=== PATIENT | male | born 1990 | race Two or more races ===

== ENCOUNTER 2018-07-21 11:30 | Emergency (ER) | payer SELFPAY ==
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
[2018-07-21] MEDS ORDERED: Azithromycin 250 MG Tab PO ONE (11:55)
[2018-07-21] MEDS ORDERED: cefTRIAXone 250 MG in Lidocaine 1% 0.9 ML IM ONE (11:55)
[2018-07-21 12:36] VITALS: BP 138/83
== END 2018-07-21 12:31 | disposition home or self-care (01) ==
LOC: MW.ED 11:30
DX: Z20.2 Contact with and (suspected) exposure to infections with a predominantly sexual mode of transmission (principal)
CPT/HCPCS: 87491; 87591; 96372; 99283; A9270; J0696

== ENCOUNTER 2018-11-01 15:01 | Emergency (ER) | payer SELFPAY ==
[2018-11-01] MEDS ORDERED: Sodium Chloride 0.9% 1,000 ML IV ONE (15:02)
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
[2018-11-01 15:19] VITALS: BP 142/70
[2018-11-01 16:31] LABS: CHLORIDE,CL 105 mmol/L (98-107); SODIUM,NA 140 mmol/L (136-148)
--- NOTE | 2018-11-01 16:36 | CT ---
INDICATION: Dizziness. TECHNIQUE: Noncontrast head CT scan. FINDINGS: Axial noncontrast images through the brain parenchyma demonstrates no acute intracranial hemorrhage or mass. No midline shift. No abnormal extra-axial air or fluid collections. Paranasal sinuses mastoid air cells skull and scalp appear unremarkable. IMPRESSION: 1. No acute intracranial hemorrhage or mass. Please note that all CT scans at this facility use dose modulation, iterative reconstruction, and/or weight-based dosing when appropriate to reduce radiation dose to as low as reasonably achievable. Dictated by Sammie Payne MD @ Nov 01 2018 4:32PM Signed by Dr. Sammie Payne @ Nov 01 2018 4:36PM
== END 2018-11-01 17:22 | disposition home or self-care (01) ==
LOC: MW.ED 15:01
DX: H66.001 Acute suppurative otitis media without spontaneous rupture of ear drum, right ear (principal); R42 Dizziness and giddiness
CPT/HCPCS: 36415; 70450; 80053; 85025; 93005; 96360; 96361; 99284; J7040; 99283

== ENCOUNTER 2018-12-06 12:20 | Emergency (ER) | payer SELFPAY ==
[2018-12-06 12:47] VITALS: BP 131/73
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
== END 2018-12-06 13:08 | disposition home or self-care (01) ==
LOC: MW.ED 12:20
DX: G56.02 Carpal tunnel syndrome, left upper limb (principal)
CPT/HCPCS: 99283

== ENCOUNTER 2019-03-05 05:35 | Emergency (ER) | payer SELFPAY ==
[2019-03-05] MEDS ORDERED: Diphtheria,Pertussis(Acell),Tetanus Vaccine 0.5 ML Syringe IM ONE (05:40)
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
--- NOTE | 2019-03-05 06:15 | CR ---
INDICATION: Pain. Swelling. TECHNIQUE: Three views left ankle. FINDINGS: Moderate soft tissue swelling involving the left ankle most prominent laterally and anteriorly. Mild increased density in the subcutaneous tissues of the visualized left lower extremity suggesting subcutaneous edema. No acute fracture or dislocation in left ankle. Small benign area of sclerosis involving the distal left tibia. Remainder negative. Dictated by Deniz Lam MD @ Mar 05 2019 6:11AM Signed by Dr. Deniz Lam @ Mar 05 2019 6:13AM
[2019-03-05 06:34] VITALS: BP 148/80
== END 2019-03-05 06:34 | disposition home or self-care (01) ==
LOC: MW.ED 05:35
DX: S00.81XA Abrasion of other part of head, initial encounter (principal); S90.512A Abrasion, left ankle, initial encounter; L03.116 Cellulitis of left lower limb; Z23 Encounter for immunization; X50.1XXA Overexertion from prolonged static or awkward postures, initial encounter
CPT/HCPCS: 73610-26-LT; 73610-LT; 90471; 90715; 99283; 99283-25

== ENCOUNTER 2019-03-11 03:25 | Emergency (ER) | payer SELFPAY ==
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
[2019-03-11 03:47] VITALS: BP 139/82
== END 2019-03-11 03:52 ==
LOC: MW.ED 03:25
DX: F15.10 Other stimulant abuse, uncomplicated (principal); Z87.891 Personal history of nicotine dependence
CPT/HCPCS: 99283

== ENCOUNTER 2019-12-09 18:41 | Emergency (ER) | payer SELFPAY ==
[2019-12-09] MEDS ORDERED: Sodium Chloride 0.9% 1,000 ML IV ONE ×2 (18:45→18:52)
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
[2019-12-09 19:15] LABS: BLOOD UREA NITROGEN,BUN 13 mg/dL (7.0-18.0); CARBON DIOXIDE,CO2 28.7 mmol/L (21.0-32.0); CHLORIDE,CL 102 mmol/L (98-107); GLUCOSE RANDOM 122 mg/dL (74-106); POTASSIUM,K 3.3 mmol/L (3.5-5.1); SODIUM,NA 141 mmol/L (136-148)
--- NOTE | 2019-12-09 19:17 | CT ---
CT cervical spine Technique: Multiple axial sections through the cervical spine were obtained. Study was obtained from above C1 inferiorly to the lower T3 level. Reconstructed sagittal and coronal images were reviewed. Findings: Vertebral body heights and disc spaces are maintained. Vertebral bodies and posterior arches are intact. No fracture is appreciated. No abnormal subluxation is appreciated. No bony central or bony neural foraminal stenosis is seen. No traumatic disc herniation is appreciated. Visualized lung apices are clear. Impression: 1. Nothing acute is appreciated on CT study of the cervical spine. Diagnostic code #1 This report was dictated in MDT
[2019-12-09 19:21] VITALS: BP 158/90; PULSE 105
--- NOTE | 2019-12-09 19:26 | CT ---
Head CT Technique: Multiple axial sections through the brain were obtained. Intravenous contrast was utilized. Comparison: Previous head CT study of 11/01/18 is available. Findings: Ventricles along with basal cisterns and sulci over the convexities are within normal limits for the patient's age. No abnormal parenchymal densities are seen. No evidence of intracranial hemorrhage. No midline shift or mass-effect is seen. Bone window settings were reviewed. No acute calvarial finding is seen. Visualized paranasal sinuses and mastoid sinuses show nothing acute. Impression: 1. Nothing acute is seen on noncontrast head CT exam. Diagnostic code #1 This report was dictated in MDT
[2019-12-09] MEDS ORDERED: Iopamidol 755 Mg/ML 100 ML Bottle IVPUSH STA (20:23)
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
--- NOTE | 2019-12-09 21:10 | CT ---
CT lumbar spine Technique: Multiple axial sections through the lumbar spine were obtained. Reconstructed coronal and sagittal images were obtained. Comparison: No previous lumbar spine imaging is available. Findings: Vertebral body heights and disc spaces are maintained. No fracture is identified. No bony central canal stenosis is seen. No bony neural foraminal stenosis is noted. No traumatic disc herniation is seen. Impression: 1. Nothing acute is appreciated on CT study of the lumbar spine. Diagnostic code #1 This report was dictated in MDT
--- NOTE | 2019-12-09 21:14 | CT ---
CT abdomen and pelvis Technique: Multiple axial sections were obtained from above the dome of the diaphragm inferiorly through the pubic symphysis. Intravenous contrast was utilized. No oral contrast has been given. Findings: No discrete liver abnormality is seen. Spleen appears without discrete abnormality. Kidneys show symmetric contrast enhancement appear without abnormality. Adrenal glands show no nodule. Pancreas shows no abnormality. Gallbladder contains no calcified gallstones. Aorta shows no aneurysm. No retroperitoneal adenopathy or mesenteric abnormalities are seen. No pelvic mass or adenopathy is seen. No free fluid or inflammatory change is seen. Appendix not visualized with certainty. Bone window settings were reviewed. No acute osseous finding is seen. Impression: 1. Nothing acute is seen on contrast study of the abdomen and pelvis. Diagnostic code #1 This report was dictated in MDT
== END 2019-12-09 21:35 | disposition home or self-care (01) ==
LOC: MW.ED 18:41
DX: S09.90XA Unspecified injury of head, initial encounter (principal); M54.6 Pain in thoracic spine; V09.9XXA Pedestrian injured in unspecified transport accident, initial encounter
CPT/HCPCS: 36415; 36569; 70450; 70450-26; 71260; 71260-26; 72125; 72125-26; 72128; 72128-26; 72131; 72131-26; 74177; 74177-26; 80053; 81003; 85025; 85610; 99284-25; 99285; J7030; Q9967

== ENCOUNTER 2019-12-28 10:55 | Emergency (ER) | payer SELFPAY ==
[2019-12-28] MEDS ORDERED: OLANZapine 10 MG in Water For Injection, Sterile 2.1 ML IM ONE (11:06)
[2019-12-28] MEDS ORDERED: Sodium Chloride 0.9% 2.5 ML Syringe FLUSH PRN ×2 (11:07→11:16)
[2019-12-28] MEDS ORDERED: Sodium Chloride 0.9% 10 ML Syringe FLUSH PRN ×2 (11:07→11:16)
[2019-12-28] MEDS ORDERED: OLANZapine 10 MG Vial ONE (11:07)
[2019-12-28] MEDS ORDERED: Sodium Chloride 0.9% 1,000 ML IV ONE ×2 (11:07→12:12)
[2019-12-28] MEDS ORDERED: Sodium Chloride 0.9% 10 ML SDV IV PRN (11:16)
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
[2019-12-28] MEDS ORDERED: Haloperidol Lactate 5 MG/ML SDV IM ONE ×2 (11:24→11:45)
[2019-12-28] MEDS ORDERED: Haloperidol Lactate 5 MG/ML SDV ONE ×2 (11:25→11:35)
[2019-12-28] MEDS ORDERED: LORazepam 2 MG/ML SDV IVPUSH ONE ×2 (11:30→12:10)
[2019-12-28] MEDS ORDERED: LORazepam 2 MG/ML SDV ONE ×2 (11:41→11:55)
[2019-12-28 11:49] LABS: BLOOD UREA NITROGEN,BUN 22 mg/dL (7.0-18.0); CARBON DIOXIDE,CO2 22.4 mmol/L (21.0-32.0); CHLORIDE,CL 100 mmol/L (98-107); GLUCOSE RANDOM 166 mg/dL (74-106); POTASSIUM,K 3.5 mmol/L (3.5-5.1); SODIUM,NA 137 mmol/L (136-148)
[2019-12-28 11:51] LABS: LIPASE 76 U/L (73-393)
--- NOTE | 2019-12-28 11:51 | CR ---
Left ankle: 3 views of the left ankle were obtained. Comparison: Previous ankle study is not available. Ankle mortise is symmetric. No fracture, dislocation or other bony abnormality is appreciated. Impression: 1. No abnormality is appreciated on left ankle exam. Diagnostic code #1 This report was dictated in MDT
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
--- NOTE | 2019-12-28 11:54 | CR ---
Pelvis: AP view of the pelvis was obtained. Comparison: No prior pelvis study. Joint spaces are maintained within both hips. Sacroiliac joints are unremarkable. No discrete fracture or other abnormality is appreciated. Impression: 1. No abnormality is appreciated on AP pelvis study. Diagnostic code #1 This report was dictated in MDT
[2019-12-28 12:00] VITALS: BP 159/135
[2019-12-28] MEDS ORDERED: Rocuronium Bromide 50 MG/5 ML Syringe IVPUSH ONE (12:00)
[2019-12-28] MEDS ORDERED: Etomidate 2 MG/ML 20 ML SDV IVPUSH ONE (12:00)
[2019-12-28 12:01] VITALS: PULSE 126
[2019-12-28] MEDS ORDERED: propofoL 100 ML ONE (12:02)
[2019-12-28] MEDS ORDERED: propofoL 100 ML IV SCH (12:15)
[2019-12-28] MEDS ORDERED: Ketamine 500 mg/10 ML MDV IM ONE (12:15)
[2019-12-28] MEDS ORDERED: Rocuronium 50 MG/5 ML Vial IVPUSH ONE (12:30)
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
== END 2019-12-28 13:06 ==
LOC: MW.ED 10:55
DX: G93.40 Encephalopathy, unspecified (principal); R00.0 Tachycardia, unspecified
CPT/HCPCS: 31500; 36415; 71045; 72170; 73610; 80053; 80305; 80307; 81001; 82803; 83605; 83690; 84484; 85025; 85610; 85730; 93005; 96372; 96374; 99291; J1630; J2060; J3490; J7030; S0166; 99285

== ENCOUNTER 2021-11-01 13:58 | Emergency (ER) | payer SELFPAY ==
[2021-11-01] MEDS ORDERED: Fluticasone NASAL Spray 16 GM Bottle NASBOTH STA (14:39)
[2021-11-01 15:29] VITALS: BP 164/78; PULSE 82
== END 2021-11-01 15:48 | disposition home or self-care (01) ==
LOC: MW.ED 13:58
DX: J32.9 Chronic sinusitis, unspecified (principal)
CPT/HCPCS: 70450; 99283; A9270

== ENCOUNTER 2021-12-20 00:02 | Emergency (ER) | payer OTHER ==
[2021-12-20 00:12] VITALS: BP 134/86; PULSE 112
== END 2021-12-20 00:26 | disposition home or self-care (01) ==
LOC: MW.ED 00:02
DX: Z02.89 Encounter for other administrative examinations (principal)
CPT/HCPCS: 99283

== ENCOUNTER 2025-01-09 15:51 | Emergency (ER) | payer MEDICAID ==
[2025-01-09 16:50] LABS: APPEARANCE,URINE CLEAR; GLUCOSE,URINE NEGATIVE (NEGATIVE); OCCULT BLOOD,URINE NEGATIVE (NEGATIVE)
[2025-01-09 18:17] LABS: BASOPHILS ABSOLUTE AUTO 0.05 K/uL (0.00-0.20); BASOPHILS PERCENT AUTO 0.7 % (0.0-1.0); EOSINOPHILS ABSOLUTE AUTO 0.02 K/uL (0.00-0.45); EOSINOPHILS PERCENT AUTO 0.3 % (0.0-6.0); IMMATURE GRAN ABSOLUTE AUTO 0.01 K/uL (0.00-0.05); IMMATURE GRAN PERCENT AUTO 0.1 % (0.0-0.4); LYMPHOCYTES ABSOLUTE AUTO 1.25 K/uL (1.00-4.80); LYMPHOCYTES PERCENT AUTO 18.4 % (24.0-44.0); MEAN PLATELET VOLUME 9.2 fL (9.4-12.4); MONOCYTES ABSOLUTE AUTO 0.31 K/uL (0.00-0.80); MONOCYTES PERCENT AUTO 4.6 % (0.0-8.0); NEUTROPHILS ABSOLUTE AUTO 5.15 K/uL (1.80-7.70); NEUTROPHILS PERCENT AUTO 75.9 % (41.0-71.0); NRBC ABSOLUTE 0.00 K/uL (0.00-0.02); NRBC PERCENT 0.0 /100WBC (0.0-0.2); PLATELET COUNT,PLT 208 K/uL (150-400); RED BLOOD CELL COUNT 4.72 M/uL (4.52-5.90); WHITE BLOOD CELL COUNT,WBC 6.79 K/uL (3.9-11.3)
[2025-01-09 18:44] LABS: A/G RATIO 1.4 (0.9-1.6); ALANINE AMINOTRANSFERASE,ALT 40.0 IU/L (14-63); ASPARTATE AMNIOTRANSFERASE,AST 49.0 IU/L (15-37); BILIRUBIN TOTAL 0.7 mg/dL (0.2-1.0); BLOOD UREA NITROGEN,BUN 8.0 mg/dL (7.0-18.0); CARBON DIOXIDE,CO2 25.7 mmol/L (21.0-32.0); CHLORIDE,CL 100.0 mmol/L (98-107); CREATININE 1.3 mg/dL (0.8-1.3); EST CRCL DRUG DOSING (CG) 83.45 mL/min; ESTIMATED GFR 74.0 mL/min (>60); GLUCOSE RANDOM 105.0 mg/dL (74-106); POTASSIUM,K 3.5 mmol/L (3.5-5.1); PROTEIN TOTAL,TP 7.3 g/dL (6.4-8.2); SODIUM,NA 137.0 mmol/L (136-148)
[2025-01-09 19:29] VITALS: BP 142/63; PULSE 78
== END 2025-01-09 19:29 | disposition home or self-care (01) ==
LOC: MW.ED 15:51
DX: R10.9 Unspecified abdominal pain (principal); M54.9 Dorsalgia, unspecified
CPT/HCPCS: 36415; 74176; 74176-26; 80053; 81003; 83690; 83735; 85025; 99283; 99284

== ENCOUNTER 2025-05-12 19:41 | Emergency (ER) | payer MEDICAID ==
[2025-05-12] MEDS: Orphenadrine 60 MG/2 ML Inj IM ONE (21:22)
[2025-05-12] MEDS: Ketorolac 30 MG/ML SDV IM ONE (21:22)
[2025-05-12] MEDS: Dexamethasone Sod Phos Preservative Free 10 MG/ML Vial IM ONE (21:22)
[2025-05-12 22:11] VITALS: BP 143/79; PULSE 91
== END 2025-05-12 22:02 | disposition home or self-care (01) ==
LOC: MW.ED 19:41
DX: M54.50 Low back pain, unspecified (principal); V18.0XXA Pedal cycle driver injured in noncollision transport accident in nontraffic accident, initial encounter
CPT/HCPCS: 72128; 72131; 96372; 99283; A9270; J1100; J1885; J2360